=== PATIENT | female | born 1960 ===

== ENCOUNTER 2018-02-10 12:57 | Outpatient (CLI) | payer MEDICARE ==
--- NOTE | 2018-02-10 15:42 | MRI ---
MRI BRAIN WITH AND WITHOUT CONTRAST: Multiplanar multisequential imaging of the brain obtained. Postcontrast images were obtained after a dministration of 19 cc MultiHance IV. 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 There are no prior studies or reports available for comparison. FINDINGS: There are encephalomalacia changes involving both frontal lobes with the volume loss and gliosis sugg esting postoperative change. Paranasal sinuses show evidence of operative change. There is a mucous retention cyst in the floor of the right maxillary antrum measuring 1.5 cm. There is an enhancing mass seen just to the right of midline along the planum sphenoidale and along t he anterior falx on the right. This enhancing mass has irregular shape and measures 2.0 cm AP dimens ion x 1.5 cm width in the axial plane. Total AP dimension in the sagittal plane measured at 2.2 cm. 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 There are areas of nodular enhancement along the roof of the sphenoid sinus at the location of prior surgery. This measures 6 mm thickness and has somewhat of a nodular appearance. It may represent mu cosal enhancement; however, I cannot exclude recurrent neoplasm at this location. FLAIR sequence shows gliosis surrounding the operative defect in the frontal lobes. Mild chronic isc hemic white matter changes are seen. There is an area of cortical gliosis on FLAIR sequence involving the right temporal lobe with volume loss. This suggests old infarct. IMPRESSION: 1. Postoperative changes in the sinuses and frontal lobes with evidence of prior resection of portio ns of both frontal lobes. There is surrounding postoperative gliosis. 2. There is an enhancing mass along the planum sphenoidale to the right of midline which abuts the a nterior falx on the right with measurements given above. Residual or recurrent meningioma would be s uspected. There is dural thickening involving the falx consistent with dural tail associated with me ningioma. 3. There is nodular enhancement along the roof of the sphenoid sinus at the site of prior sinus surg alvaro. Mucosal enhancement is favored, although recurrent neoplasm at this location is not excluded. 4. Volume loss and gliosis involving the right temporal lobe consistent with old infarct. 5. Mild chronic ischemic white matter changes. POS: JAUN
== END 2018-02-10 12:58 | disposition home or self-care (01) ==
LOC: SCSMRI 12:57
PROVIDERS: ATTEND Psychiatry & Neurology Neurology
DX: D49.7 Neoplasm of unspecified behavior of endocrine glands and other parts of nervous system (principal); G93.89 Other specified disorders of brain; J34.89 Other specified disorders of nose and nasal sinuses; Z98.890 Other specified postprocedural states; Z86.73 Personal history of transient ischemic attack (TIA), and cerebral infarction without residual deficits
CPT/HCPCS: 70553

== ENCOUNTER 2023-04-21 13:32 | Outpatient (CLI) | payer MEDICARE, OTHER | END 2023-04-21 13:33 | disposition home or self-care (01) | LOC: EEG 13:32 | PROVIDERS: ATTEND Psychiatry & Neurology Neurology | DX: R56.9 Unspecified convulsions (principal) | CPT/HCPCS: 95816 ==